=== PATIENT | male | born 1985 | race African-American/Black ===

== ENCOUNTER 2016-07-31 21:53 | Emergency (ER) | payer BC ==
[~2016-07-31] VITALS: Ht 167.6 cm; Wt 76.0 kg
[2016-07-31 21:55] VITALS: BP 123/65; PULSE 55; RESP 16; TEMP 98.4; O2SAT 100
[2016-07-31] MEDS ORDERED: AMOXICILLIN 875 MG TAB PO ONE (23:15)
[2016-07-31] MEDS ORDERED: DEXAMETHASONE SOD PHOS 20 MG/5 ML VIAL IM ONE (23:15)
[2016-07-31] MEDS ORDERED: IBUP800T23 PO (23:18)
[2016-07-31] MEDS ORDERED: AMOX875T PO (23:18)
--- NOTE | 2016-07-31 23:21 | PD ---
HPI Chief Complaint: Cold / Flu Symptoms Time Seen by Provider: 23:16 Travel History International Travel<30 days: No Contact w/Intl Traveler<30days: No Traveled to known affect area: No History of Present Illness HPI Patient is a 30-year-old male presenting to emergency department 2 days of throat pain. Patient states it hurts to swallow. He reports having a cold over a week ago which has been resolving without issue. Denies any fever, chills, nausea, vomiting, head ache. He reports the pain as a 6 out of 10, is worse upon awakening in the morning. PFS Past Medical History Medical History: Denies Significant Hx Diminished Hearing: No Immunizations Current: No Tetanus Vaccination: < 5 Years Past Surgical History Surgical History: No Previous Surgery Social History Alcohol Use: Yes (SOCIAL) Tobacco Use: Yes (OCC) Substance Use: No Allergies-Medications (Allergen,Severity, Reaction): Coded Allergies: No Known Allergies (Verified , 10/30/14) Reported Meds & Prescriptions Reported Meds & Active Scripts Active No Active Prescriptions or Reported Medications Review of Systems Except as stated in HPI: all other systems reviewed are Neg HENT: Positive: Sore Throat, Congestion Physical Exam Narrative GENERAL: Well-nourished, well-developed patient. SKIN: Focused skin assessment warm/dry. HEAD: Normocephalic. EYES: No scleral icterus. No injection or drainage. ENT: Mucosa pink and moist. Moderate erythema to posterior pharynx, no exudates or tonsillar hypertrophy noted. No uvular edema. No uvular, palatal, or tonsillar deviation. Airway patent. Nasal turbinates appear normal without nasal blood, purulent drainage or septal hematoma. NECK: Supple, trachea midline. No JVD, no lymphadenopathy noted. CARDIOVASCULAR: Regular rate and rhythm without murmurs, gallops, or rubs. RESPIRATORY: Breath sounds equal bilaterally. No accessory muscle use. GASTROINTESTINAL: Abdomen soft, non-tender, nondistended. MUSCULOSKELETAL: No cyanosis, or edema. BACK: Nontender without obvious deformity. No CVA tenderness. Data Data Last Documented VS Vital Signs Date Time Temp Pulse Resp B/P Pulse Ox O2 Delivery O2 Flow Rate FiO2 07/31/16 21:55 98.4 55 16 123/65 100 Room Air Orders Amoxicillin (Trimox) (07/31/16 23:15) Dexamethasone Inj (Decadron Inj) (07/31/16 23:15) MDM Medical Decision Making Medical Screen Exam Complete: Yes Emergency Medical Condition: Yes Interpretation(s) Vital Signs Date Time Temp Pulse Resp B/P Pulse Ox O2 Delivery O2 Flow Rate FiO2 07/31/16 21:55 98.4 55 16 123/65 100 Room Air Differential Diagnosis Postnasal drip versus upper respiratory infection versus pharyngitis versus allergic rhinitis Narrative Course Patient is a 30-year-old male presenting for evaluation of a sore throat. Patient's airway is patent, there is no tonsillar hypertrophy noted. Patient has moderate erythema and cobblestone appearance to posterior pharynx consistent with postnasal drip. Due to preceding upper respiratory infection, patient will be treated with antibiotics at this time. He was given a dose amoxicillin and dexamethasone prior to discharge due to the late hour. He was encouraged to follow up with primary care return to emergency department for any new or worsening symptoms. Patient verbalized understanding of these instructions. Patient is stable for discharge. Diagnosis Primary Impression: Pharyngitis Qualified Code: J02.9 - Pharyngitis, unspecified etiology Referrals: Primary Care Physician Patient Instructions: General Instructions, Pharyngitis (ED) Additional Instructions: Follow-up with your primary doctor Complete full course of antibiotics as prescribed Return to emergency department for any new or worsening symptoms Med/Other Pt SpecificInfo: Prescription(s) given Scripts Ibuprofen 800 Mg [id number] Mg PO Q6HR PRN (PAIN) #40 TAB Ref 0 Prov:Melissa Figueroa 07/31/16 Amoxicillin 875 Mg Xmn022 Mg PO BID 10 Days Ref 0 Prov:Melissa Figueroa 07/31/16 Disposition: 01 DISCHARGE HOME Condition: Stable Melissa Figueroa Jul 31, 2016 23:21
== END 2016-08-01 01:03 | disposition home or self-care (01) ==
LOC: NEPK 21:53
DX: J02.9 Acute pharyngitis, unspecified (principal); Z72.0 Tobacco use
CPT/HCPCS: 96372; 99284; J1100